=== PATIENT | female | born 1950 | race Caucasian/White ===

== ENCOUNTER → 2018-03-11 | Outpatient (CLI) | payer MEDICARE, OTHER ==
[2018-03-11 13:55] LABS: Hematocrit 33.3 % (33.0-51.0); Hemoglobin 9.9 g/dL (11.5-16.0); Mean Corpuscular HGB 22.9 pg (26.0-34.0); Mean Corpuscular HGB Conc 29.7 g/dL (31.5-36.5); Mean Corpuscular Volume 77 fL (80-100); Mean Platelet Volume 10.4 fL (9.1-12.4); Platelet Count 439 K/mm3 (150-400); RDW Coefficient Variation 22.5 % (11.7-14.2); RDW Standard Deviation 61.1 fL (35.1-46.3); Red Blood Cell Count 4.33 M/mm3 (3.80-5.20); White Blood Cell Count 8.12 K/mm3 (4.00-11.30)
== END ==
LOC: LAB 13:31 → LAB SHORT 13:31
PROVIDERS: Family Medicine
DX: R19.5 Other fecal abnormalities (principal)
CPT/HCPCS: 85027

== ENCOUNTER 2018-03-26 15:05 | Emergency (ER) | payer MEDICARE, OTHER ==
[~2018-03-26] VITALS: Ht 182.9 cm; Wt 89.4 kg
[2018-03-26 15:31] LABS: BASOPHILS ABSOLUTE AUTO 0.06 K/mm3 (0.00-0.23); BASOPHILS PERCENT AUTO 1 % (0-2); EOSINOPHILS ABSOLUTE AUTO 0.28 K/mm3 (0.00-0.68); EOSINOPHILS PERCENT AUTO 4 % (0-6); Hematocrit 36.7 % (33.0-51.0); IMMATURE GRAN ABSOLUTE AUTO 0.02 K/mm3 (0.00-0.10); IMMATURE GRAN PERCENT AUTO 0 % (0-1); LYMPHOCYTES ABSOLUTE AUTO 1.78 K/mm3 (0.84-5.20); LYMPHOCYTES PERCENT AUTO 25 % (21-46); MONOCYTES ABSOLUTE AUTO 0.71 K/mm3 (0.16-1.47); MONOCYTES PERCENT AUTO 10 % (4-13); Mean Corpuscular HGB 23.5 pg (26.0-34.0); Mean Corpuscular Volume 78 fL (80-100); Mean Platelet Volume 9.8 fL (9.1-12.4); NEUTROPHILS ABSOLUTE AUTO 4.19 K/mm3 (1.96-9.15); NEUTROPHILS PERCENT AUTO 59 % (41-73); Platelet Count 318 K/mm3 (150-400); RDW Coefficient Variation 21.2 % (11.7-14.2); RDW Standard Deviation 58.4 fL (35.1-46.3); Red Blood Cell Count 4.68 M/mm3 (3.80-5.20); White Blood Cell Count 7.04 K/mm3 (4.00-11.30)
[2018-03-26 15:55] LABS: Alanine Aminotransfer (ALT/SGP 16 U/L (12-78); Albumin, Blood 3.5 g/dL (3.4-5.0); Albumin/Globulin Ratio 0.8 (0.8-1.8); Alk Phos 114 U/L (50-136); Anion Gap 7 mmol/L (6-16); Aspartate Aminotrans (AST/SGOT 11 U/L (12-37); Bilirubin, Total 0.2 mg/dL (0.1-1.0); Blood Urea Nitrogen 11 mg/dL (8-24); Bun/Creatinine Ratio 13.9 (12.0-20.0); CO2, Blood 28 mmol/L (21-32); Calcium, Blood 8.3 mg/dL (8.5-10.1); Chloride, Blood 99 mmol/L (98-108); Creatinine, Blood 0.79 mg/dL (0.40-1.00); Globulin, Blood 4.5 g/dL (2.2-4.0); Glomerular Filtration Rate >60 (60-); Glucose, Blood 100 mg/dL (70-99); Potassium, Blood 3.4 mmol/L (3.5-5.5); Sodium, Blood 134 mmol/L (136-145)
[2018-03-26] MEDS ORDERED: TRAZ100 PO (17:41)
[2018-03-26] MEDS ORDERED: GABA600 PO (17:41)
[2018-03-26] MEDS ORDERED: TELM20 PO ×2 (17:41→17:48)
[2018-03-26] MEDS ORDERED: LEVSOD125 PO (17:42)
[2018-03-26] MEDS ORDERED: PRAMIPEXOLE0.125 MG PO (17:42)
[2018-03-26] MEDS ORDERED: DULO30 PO (17:42)
[2018-03-26] MEDS ORDERED: BACL20 PO (17:42)
[2018-03-26] MEDS ORDERED: BUPR150ER PO (17:43)
[2018-03-26] MEDS ORDERED: CEPH500 PO (17:44)
[2018-03-26] MEDS ORDERED: PANT40 PO (17:45)
[2018-03-26] MEDS ORDERED: Vesicare10 MG PO (17:45)
[2018-03-26] MEDS ORDERED: ASCO500 PO (17:46)
[2018-03-26] MEDS ORDERED: CALCA400CH PO (17:47)
== END 2018-03-26 18:10 | disposition home or self-care (01) ==
LOC: ER 15:05
PROVIDERS: Physician Assistant
DX: L03.116 Cellulitis of left lower limb (principal); M86.672 Other chronic osteomyelitis, left ankle and foot; I10 Essential (primary) hypertension; E78.5 Hyperlipidemia, unspecified; Z79.899 Other long term (current) drug therapy
CPT/HCPCS: 36415; 73610; 80053; 85025; 86141; 99283-25

== ENCOUNTER 2018-04-02 00:14 | Day surgery (SDC) | payer MEDICARE, OTHER ==
[~2018-04-02 00:14] MED LIST: ASCO500 PO; BACL20 PO; BUPR150ER PO; CALCA400CH PO; CEPH500 PO; DULO30 PO; GABA600 PO; LEVSOD125 PO; PANT40 PO; PRAMIPEXOLE0.125 MG PO; TELM20 PO; TRAZ100 PO; Vesicare10 MG PO
== END 2018-04-02 22:51 | disposition home or self-care (01) ==
LOC: WOUND 00:14
DX: L97.322 Non-pressure chronic ulcer of left ankle with fat layer exposed (principal); Z94.5 Skin transplant status; D64.9 Anemia, unspecified; M21.171 Varus deformity, not elsewhere classified, right ankle; G35 Multiple sclerosis; R79.9 Abnormal finding of blood chemistry, unspecified
CPT/HCPCS: G0463

== ENCOUNTER → 2018-04-12 | Outpatient (CLI) | payer MEDICARE, OTHER ==
[2018-04-12 18:45] LABS: Source, Urine Clean Catch
[2018-04-12 18:49] LABS: Bilirubin, Urine Neg (Neg); Blood, Urine 3+ (Neg); Glucose Qualitative, Urine Neg (Neg); Ketones, Urine Neg (Neg); Leukocyte Esterase, Urine 3+ (Neg); Nitrite, Urine Pos (Neg); Protein, Urine 1+ (Neg); Urobilinogen, Urine NORM (Normal)
[2018-04-12 18:53] LABS: Appearance, Urine Clear (Clear); Color, Urine Yellow (P-Yellow)
[2018-04-12 18:54] LABS: Bacteria Many /hpf; Red Blood Cells, Urine 0-2 /hpf (0-2); Squamous Epithelial Cells Few /hpf (Few); White Blood Cells, Urine 25-50 /hpf (0-5)
== END ==
LOC: LAB SHORT 16:10 → LAB 16:10
PROVIDERS: Family Medicine
DX: N39.0 Urinary tract infection, site not specified (principal)
CPT/HCPCS: 81001; 87077; 87086; 87186

== ENCOUNTER → 2018-04-27 | Outpatient (CLI) | payer MEDICARE, OTHER ==
[2018-04-27 17:03] LABS: Bilirubin, Urine Neg (Neg); Blood, Urine 4+ (Neg); Glucose Qualitative, Urine Neg (Neg); Ketones, Urine Neg (Neg); Leukocyte Esterase, Urine 3+ (Neg); Nitrite, Urine Pos (Neg); Protein, Urine Neg (Neg); Urobilinogen, Urine NORM (Normal)
[2018-04-27 17:28] LABS: Appearance, Urine Clear (Clear); Color, Urine Yellow (P-Yellow)
[2018-04-27 17:30] LABS: Bacteria Many /hpf; Squamous Epithelial Cells Few /hpf (Few)
== END ==
LOC: LAB SHORT 16:46 → LAB 16:46
PROVIDERS: Family Medicine
DX: R39.15 Urgency of urination (principal)
CPT/HCPCS: 81001; 87077; 87086; 87186

== ENCOUNTER 2018-05-05 15:15 | Day surgery (SDC) | payer MEDICARE, OTHER | END 2018-05-05 22:42 | disposition home or self-care (01) | LOC: WOUND 15:15 | DX: L97.322 Non-pressure chronic ulcer of left ankle with fat layer exposed (principal); Z94.5 Skin transplant status; D64.9 Anemia, unspecified; M21.171 Varus deformity, not elsewhere classified, right ankle; G35 Multiple sclerosis; R79.9 Abnormal finding of blood chemistry, unspecified | CPT/HCPCS: 87070; 87077; 87186; 87205 ==

== ENCOUNTER → 2018-05-28 | Outpatient (CLI) | payer MEDICARE, OTHER ==
[2018-05-28 14:06] LABS: Source, Urine Voided
[2018-05-28 14:17] LABS: Bilirubin, Urine Neg (Neg); Blood, Urine Neg (Neg); Glucose Qualitative, Urine Neg (Neg); Ketones, Urine Neg (Neg); Leukocyte Esterase, Urine 3+ (Neg); Nitrite, Urine Pos (Neg); Protein, Urine Neg (Neg); Urobilinogen, Urine NORM (Normal)
[2018-05-28 14:40] LABS: Appearance, Urine Hazy (Clear); Color, Urine Yellow (P-Yellow)
[2018-05-28 14:44] LABS: Bacteria Mod /hpf; Mucus Light (0-Heavy); Red Blood Cells, Urine 0-2 /hpf (0-2); Squamous Epithelial Cells Few /hpf (Few); Transitional Epithelial Cells Few /hpf (0-Rare)
== END | disposition home or self-care (01) ==
LOC: LAB SHORT 14:03 → LAB 14:03
PROVIDERS: Physician Assistant
DX: R30.0 Dysuria (principal)
CPT/HCPCS: 81001; 87077; 87086; 87186

== ENCOUNTER 2018-06-08 06:47 | Day surgery (SDC) | payer MEDICARE, OTHER ==
[~2018-06-08] VITALS: Ht 182.9 cm; Wt 87.7 kg
--- NOTE | 2018-06-08 12:08 | NUR ---
PT DC'D BY THIS RN WITH SON GIVING PT RIDE HOME
== END 2018-06-08 12:00 | disposition home or self-care (01) ==
LOC: MHTC 06:47
DX: I73.9 Peripheral vascular disease, unspecified (principal); G35 Multiple sclerosis; I10 Essential (primary) hypertension; K21.9 Gastro-esophageal reflux disease without esophagitis; M41.9 Scoliosis, unspecified; F32.9 Major depressive disorder, single episode, unspecified; Z87.891 Personal history of nicotine dependence; Z88.1 Allergy status to other antibiotic agents
CPT/HCPCS: 99152; 99153; C1760; C1769; C1887; C1894; J1644; J2250; J3010; J7030; Q9967

== ENCOUNTER → 2018-06-11 | Outpatient (CLI) | payer MEDICARE, OTHER ==
[~2018-06-11] MED LIST changes: +Acidophilus La100 GM PO; +D-MANNOSE PO; +HIPREX1 GM PO; +Hair, Skin & N1 EACH PO; +KEFLEX250 MG PO; +MAXIDE PO; +META800 PO; +PLENDIL PO; +Zanaflex4 M1 PO
[2018-06-11 14:17] LABS: Bilirubin, Urine Neg (Neg); Blood, Urine Neg (Neg); Glucose Qualitative, Urine Neg (Neg); Ketones, Urine Neg (Neg); Leukocyte Esterase, Urine 3+ (Neg); Nitrite, Urine Pos (Neg); Protein, Urine Neg (Neg); Urobilinogen, Urine NORM (Normal)
[2018-06-11 14:29] LABS: Appearance, Urine Hazy (Clear); Color, Urine Yellow (P-Yellow)
[2018-06-11 14:30] LABS: Squamous Epithelial Cells Few /hpf (Few)
[2018-06-11 14:31] LABS: Bacteria Mod /hpf; Red Blood Cells, Urine Not Seen /hpf (0-2); White Blood Cells, Urine 25-50 /hpf (0-5)
== END | disposition home or self-care (01) ==
LOC: LAB 14:08 → LAB SHORT 14:08
PROVIDERS: Family Medicine
DX: N39.0 Urinary tract infection, site not specified (principal)
CPT/HCPCS: 81001; 87077; 87086; 87186

== ENCOUNTER 2018-06-16 00:09 | Day surgery (SDC) | payer MEDICARE, OTHER ==
[~2018-06-16 00:09] MED LIST changes: -Acidophilus La100 GM PO; -D-MANNOSE PO; -HIPREX1 GM PO; -Hair, Skin & N1 EACH PO; -KEFLEX250 MG PO; -MAXIDE PO; -META800 PO; -PLENDIL PO; -Zanaflex4 M1 PO
[2018-06-17] MEDS ORDERED: Hair, Skin & N1 EACH PO (09:16)
[2018-06-17] MEDS ORDERED: META800 PO (09:18)
[2018-06-17] MEDS ORDERED: HIPREX1 GM PO (09:19)
[2018-06-17] MEDS ORDERED: MAXIDE PO (09:19)
[2018-06-17] MEDS ORDERED: D-MANNOSE PO (09:20)
[2018-06-17] MEDS ORDERED: Acidophilus La100 GM PO (09:20)
[2018-06-17] MEDS ORDERED: KEFLEX250 MG PO (09:21)
[2018-06-17] MEDS ORDERED: Zanaflex4 M1 PO (09:21)
[2018-06-17] MEDS ORDERED: BUPR150ER PO (09:22)
[2018-06-17] MEDS ORDERED: PLENDIL PO (09:23)
== END 2018-06-16 22:38 | disposition home or self-care (01) ==
LOC: WOUND 00:09
DX: L97.322 Non-pressure chronic ulcer of left ankle with fat layer exposed (principal); I10 Essential (primary) hypertension; J45.909 Unspecified asthma, uncomplicated; M21.171 Varus deformity, not elsewhere classified, right ankle; G35 Multiple sclerosis; R79.9 Abnormal finding of blood chemistry, unspecified; D64.9 Anemia, unspecified; M19.90 Unspecified osteoarthritis, unspecified site; Z94.5 Skin transplant status; Z79.899 Other long term (current) drug therapy
CPT/HCPCS: G0463

== ENCOUNTER 2018-06-23 06:06 | Inpatient (IN) | payer MEDICARE, OTHER ==
[~2018-06-23] VITALS: Ht 182.9 cm; Wt 85.7 kg
[~2018-06-23 06:06] MED LIST changes: +Acidophilus La100 GM PO; +D-MANNOSE PO; +HIPREX1 GM PO; +Hair, Skin & N1 EACH PO; +KEFLEX250 MG PO; +MAXIDE PO; +META800 PO; +PLENDIL PO; +Zanaflex4 M1 PO
--- NOTE | 2018-06-23 19:37 | NUR ---
PT HAVING INCREASED PAIN, DR LENNON NOTIFIED IN BOND WRITER FOR DR TAYLOR. DISCUSSED PT'S PAIN AND PAIN MEDICATIONS AT THIS TIME. DISCUSSED PT HAVING HOME MEDICATIONS THAT WERE NOT ORDERED AT THIS TIME. CLARIFIED NO ANTIBIOTICS ORDERED. DR CONNORS TO ORDER HOME MEDICATIONS PER THERE REGIMEN, DISCUSSED HOME MEDS IN LENGTH. DR LENNON ALSO GAVE NEW ORDERS FOR PAIN. SEE ORDERS.
--- NOTE | 2018-06-23 19:45 | NUR ---
SHIFT SUMMARY PT HAD PROCEDURE TODAY. PT A/O. PT RECENTLY HAD INCREASED PAIN. DR LENNON WAS NOTIFIED WAS SEARCH ENGINE MARKETING SPECIALIST FOR DR TAYLOR. DR LENNON GAVE NEW ORDERS FOR PAIN MED AND REPORTED TO START HOME MEDS. SEE OTHER NOTE AND ORDERS. PT BEEN PLEASANT AND COOP, MOVING IN BED. REFUSED TO HAVE HEEL PROTECTOR DRESSING TO R HEEL (WAS IN PLACE EARLIER BUT PT DID NOT LIKE SO IT WAS REMOVED AFTER DISCUSSING RISK OF B/D) PT HEEL ELEVATED WITH PILLOW. PT EATING AND DRINKING WELL. MINIMAL OUT OF HEMOVAC.
[2018-06-24 06:09] LABS: BASOPHILS ABSOLUTE AUTO 0.04 K/mm3 (0.00-0.23); BASOPHILS PERCENT AUTO 0 % (0-2); EOSINOPHILS ABSOLUTE AUTO 0.19 K/mm3 (0.00-0.68); EOSINOPHILS PERCENT AUTO 2 % (0-6); Hematocrit 26.7 % (33.0-51.0); Hemoglobin 8.2 g/dL (11.5-16.0); IMMATURE GRAN ABSOLUTE AUTO 0.04 K/mm3 (0.00-0.10); IMMATURE GRAN PERCENT AUTO 0 % (0-1); LYMPHOCYTES ABSOLUTE AUTO 1.69 K/mm3 (0.84-5.20); LYMPHOCYTES PERCENT AUTO 17 % (21-46); MONOCYTES ABSOLUTE AUTO 1.22 K/mm3 (0.16-1.47); MONOCYTES PERCENT AUTO 12 % (4-13); Mean Corpuscular HGB 23.4 pg (26.0-34.0); Mean Corpuscular HGB Conc 30.7 g/dL (31.5-36.5); Mean Corpuscular Volume 76 fL (80-100); Mean Platelet Volume 9.8 fL (9.1-12.4); NEUTROPHILS PERCENT AUTO 68 % (41-73); Platelet Count 339 K/mm3 (150-400); RDW Coefficient Variation 14.8 % (11.7-14.2); RDW Standard Deviation 40.8 fL (35.1-46.3); Red Blood Cell Count 3.51 M/mm3 (3.80-5.20); White Blood Cell Count 9.98 K/mm3 (4.00-11.30)
--- NOTE | 2018-06-24 06:38 | NUR ---
SUMMARY: PT IS POD1 FOR L BKA. NO ACUTE CHANGE TONIGHT. VSS,A/O. PT REPORTS PAIN IS WELL MANAGED RATING PAIN 2/10 OR 3/10, BUT APPEARS AND REPORTED UNABLE TO GET COMFORTABLE IN BED AND THAT PAIN WOULD WAKE HER UP. LLE POSITIONED FOR COMFORT. STUMP SITE/SOCK WNL, HEMOVAC DID NOT NEED TO BE DRAINED. PT MOVES WELL IN BED. WILL CTM AND REPORT TO DAY RN.
--- NOTE | 2018-06-24 09:50 | NUR ---
DR CONNORS WILL CANCEL STRESS TEST. REPORTS
--- NOTE | 2018-06-24 10:29 | NUR ---
JOSE ENRIQUE IN TALKING WITH PT, REPORTS PT WOULD LIKE PAIN MED BEFORE WORKING WITH THERAPY. WILL MED FOR PAIN.
--- NOTE | 2018-06-24 12:02 | NUR ---
DR TAYLOR HERE RECENTLY AND DC'D HEMOVAC. REPORTED MAY GIVE EXTRA PAIN MEDICATION PER PT REQ.
--- NOTE | 2018-06-24 12:30 | NUR ---
06/24/18 1230 Melisa Mata VERIFICATIONS: EDIT CHART.
--- NOTE | 2018-06-24 15:18 | NUR ---
CASE MANAGEMENT IN RECENTLY AND TALKED WITH PT.
--- NOTE | 2018-06-24 16:31 | NUR ---
SHIFT SUMMARY PT EATING AND DRINKING. PT BEEN ASSISTED WITH ADL'S PRN. DR BEEN TO SEE PT AND DC'D HEMOVAC EARLIER TODAY. DR ROCK FOR DENTAL SCHEDULER TO START PROCESS FOR PT TO GO TO SNF, DISCUSSED WITH CASE MANAGEMENT WHO SPOKE WITH PT. PT BEEN UP TO CHAIR WITH THERAPY EARLIER TODAY THEN BACK TO BED. PT BEEN RESTING QUIETLY OFF AND ON, TAKING NAPS. PT BEEN REPOSITIONED MULT TIMES IN BED, R HEEL FLOATED. PAS TO R CALF IN PLACE. PT USING CALL LIGHT APPR. FAMILY IN THIS EVENING TO SEE PT. SMALL AMT OF DRAINAGE ON STUMP SOCK AFTER HAVING HEMOVAC DC'D, APPEARS WNL.
[2018-06-25 05:05] LABS: BASOPHILS ABSOLUTE AUTO 0.06 K/mm3 (0.00-0.23); BASOPHILS PERCENT AUTO 1 % (0-2); EOSINOPHILS ABSOLUTE AUTO 0.32 K/mm3 (0.00-0.68); EOSINOPHILS PERCENT AUTO 3 % (0-6); Hematocrit 27.2 % (33.0-51.0); Hemoglobin 8.3 g/dL (11.5-16.0); IMMATURE GRAN ABSOLUTE AUTO 0.05 K/mm3 (0.00-0.10); IMMATURE GRAN PERCENT AUTO 1 % (0-1); LYMPHOCYTES ABSOLUTE AUTO 1.64 K/mm3 (0.84-5.20); LYMPHOCYTES PERCENT AUTO 16 % (21-46); MONOCYTES ABSOLUTE AUTO 1.25 K/mm3 (0.16-1.47); MONOCYTES PERCENT AUTO 12 % (4-13); Mean Corpuscular HGB Conc 30.5 g/dL (31.5-36.5); Mean Corpuscular Volume 75 fL (80-100); Mean Platelet Volume 9.9 fL (9.1-12.4); NEUTROPHILS ABSOLUTE AUTO 7.22 K/mm3 (1.96-9.15); NEUTROPHILS PERCENT AUTO 68 % (41-73); Platelet Count 360 K/mm3 (150-400); RDW Coefficient Variation 14.7 % (11.7-14.2); RDW Standard Deviation 40.3 fL (35.1-46.3); Red Blood Cell Count 3.61 M/mm3 (3.80-5.20); White Blood Cell Count 10.54 K/mm3 (4.00-11.30)
--- NOTE | 2018-06-25 06:37 | NUR ---
LYING IN SEMI FOWLERS WITH EYES CLOSED. MEDICATED X2 FOR PAIN. REPOSITIONED FOR COMFORT PRN. DENIES FURTHER NEEDS AT THIS TIME. SAFETY MEASURES IN PLACE. WILL GIVE HAND OFF TO ONCOMING SHIFT USING SBAR,
--- NOTE | 2018-06-25 17:56 | NUR ---
SHIFT SUMMARY NO ACUTE CHANGES THIS SHIFT. VSS. PT RECEIVING 2 NORCO FOR PAIN. STUMP SOCK TO L BKA IS DRY AND INTACT AND ELEVATED ON PILLOWS. PT HAS SOME BED MOBILITY, BUT OTHERWISE IS A 1-2 PERSON MAX ASSIST WHEN TRANSFERING FROM BED TO CHAIR. OSBALDO REG DIET. IV SL. USES CALL LIGHT APPROPRIATELY. PLAN IS FOR DC TO SNF POSSIBLY TOMORROW.
--- NOTE | 2018-06-26 07:53 | NUR ---
SUMMARY PT MUNIZ DCD BY DAY RN. PT HAD BLADDER SCAN GREATER THAN 800 ML AND REFUSED ATTEMPT TO VOID. HOWEVER,SHORTLY AFTER, PT CALLED AND HAD SATURATED ATTENDS AND YO HEAVILY SO NO CATH NEEDED TONIGHT. NO OTHER ACUTE CHANGES. PT REPOSTIONS WITH ASSIST.
--- NOTE | 2018-06-26 13:55 | NUR ---
DC'D PT TRANSFERRED TO OWN WC W/MODERATE ASSISTANCE. LEFT UNIT W/POSSESSIONS. REPORT CALLED TO DIONICIO.
== END 2018-06-26 13:35 | DRG 581 ==
LOC: ORSCMMR 06:06 → ORD 07:30 → ORSCMMR 07:30 → SURS 11:02
PROVIDERS: ADMIT Surgery
PROC: 0Y6J0Z1 Detachment at Left Lower Leg, High, Open Approach (ICD-10-PCS; principal; 2018-06-23 07:30)
DX: L97.824 Non-pressure chronic ulcer of other part of left lower leg with necrosis of bone (principal); N31.9 Neuromuscular dysfunction of bladder, unspecified; G35 Multiple sclerosis; I10 Essential (primary) hypertension; E03.9 Hypothyroidism, unspecified; K21.9 Gastro-esophageal reflux disease without esophagitis; Z87.891 Personal history of nicotine dependence
CPT/HCPCS: 36415; 85025; 88307; 97162; 97166; 97530; 97535; A9270-GY; J0690; J1100; J1650; J1885; J2250; J2370; J2405; J2704; J3010; J7120

== ENCOUNTER → 2018-07-05 | Outpatient (CLI) | payer MEDICARE, OTHER | END | disposition home or self-care (01) | LOC: LAB 16:53 → LAB SHORT 16:53 | DX: Z09 Encounter for follow-up examination after completed treatment for conditions other than malignant neoplasm (principal); Z86.14 Personal history of Methicillin resistant Staphylococcus aureus infection ==

== ENCOUNTER 2018-08-13 01:22 | Day surgery (SDC) | payer MEDICARE, OTHER | END 2018-08-13 22:42 | disposition home or self-care (01) | LOC: WOUND 01:22 | DX: T87.89 Other complications of amputation stump (principal); L97.822 Non-pressure chronic ulcer of other part of left lower leg with fat layer exposed; I10 Essential (primary) hypertension; I73.9 Peripheral vascular disease, unspecified; E03.9 Hypothyroidism, unspecified; F32.9 Major depressive disorder, single episode, unspecified; D50.9 Iron deficiency anemia, unspecified; Z89.512 Acquired absence of left leg below knee ==

== ENCOUNTER 2018-08-24 00:18 | Day surgery (SDC) | payer MEDICARE, OTHER | END 2018-08-24 22:54 | disposition home or self-care (01) | LOC: WOUND 00:18 | DX: T87.89 Other complications of amputation stump (principal); I10 Essential (primary) hypertension; I73.9 Peripheral vascular disease, unspecified; D64.9 Anemia, unspecified; Z89.512 Acquired absence of left leg below knee ==

== ENCOUNTER 2018-09-03 14:45 | Day surgery (SDC) | payer MEDICARE, OTHER | END 2018-09-03 22:59 | disposition home or self-care (01) | LOC: WOUND 14:45 | DX: T87.89 Other complications of amputation stump (principal); I73.9 Peripheral vascular disease, unspecified; I10 Essential (primary) hypertension; E03.9 Hypothyroidism, unspecified; F32.9 Major depressive disorder, single episode, unspecified; D64.9 Anemia, unspecified; Z89.512 Acquired absence of left leg below knee ==

== ENCOUNTER 2018-09-10 14:45 | Day surgery (SDC) | payer MEDICARE, OTHER | END 2018-09-10 22:38 | disposition home or self-care (01) | LOC: WOUND 14:45 | DX: T87.89 Other complications of amputation stump (principal); L97.822 Non-pressure chronic ulcer of other part of left lower leg with fat layer exposed; I10 Essential (primary) hypertension; I73.9 Peripheral vascular disease, unspecified; Z89.512 Acquired absence of left leg below knee ==

== ENCOUNTER 2018-09-15 19:56 | Emergency (ER) | payer MEDICARE, OTHER ==
[~2018-09-15] VITALS: Ht 182.9 cm; Wt 81.7 kg
[2018-09-15 20:23] LABS: BASOPHILS ABSOLUTE AUTO 0.06 K/mm3 (0.00-0.23); BASOPHILS PERCENT AUTO 1 % (0-2); EOSINOPHILS PERCENT AUTO 4 % (0-6); Hematocrit 41.4 % (33.0-51.0); Hemoglobin 13.2 g/dL (11.5-16.0); IMMATURE GRAN ABSOLUTE AUTO 0.04 K/mm3 (0.00-0.10); IMMATURE GRAN PERCENT AUTO 0 % (0-1); LYMPHOCYTES ABSOLUTE AUTO 3.83 K/mm3 (0.84-5.20); LYMPHOCYTES PERCENT AUTO 38 % (21-46); MONOCYTES PERCENT AUTO 9 % (4-13); Mean Corpuscular HGB 25.8 pg (26.0-34.0); Mean Corpuscular HGB Conc 31.9 g/dL (31.5-36.5); Mean Corpuscular Volume 81 fL (80-100); Mean Platelet Volume 9.9 fL (9.1-12.4); NEUTROPHILS ABSOLUTE AUTO 4.93 K/mm3 (1.96-9.15); NEUTROPHILS PERCENT AUTO 49 % (41-73); Platelet Count 359 K/mm3 (150-400); RDW Coefficient Variation 16.8 % (11.7-14.2); RDW Standard Deviation 50.2 fL (35.1-46.3); Red Blood Cell Count 5.12 M/mm3 (3.80-5.20); White Blood Cell Count 10.16 K/mm3 (4.00-11.30)
[2018-09-15 20:40] LABS: Anion Gap 8 mmol/L (6-16); Blood Urea Nitrogen 16 mg/dL (8-24); CO2, Blood 27 mmol/L (21-32); Calcium, Blood 8.8 mg/dL (8.5-10.1); Chloride, Blood 100 mmol/L (98-108); Glomerular Filtration Rate >60 (60-); Glucose, Blood 116 mg/dL (70-99); Sodium, Blood 135 mmol/L (136-145)
[2018-09-15] MEDS ORDERED: MOTION RELIEF25 MG PO (20:55)
[2018-09-15] MEDS ORDERED: ONDA4ODT MM (20:55)
[2018-09-15] MEDS ORDERED: LORA2 PO (20:55)
== END 2018-09-15 22:23 | disposition home or self-care (01) ==
LOC: ER 19:56
PROVIDERS: Emergency Medicine
DX: R42 Dizziness and giddiness (principal); R11.2 Nausea with vomiting, unspecified; I10 Essential (primary) hypertension; E03.9 Hypothyroidism, unspecified; Z79.899 Other long term (current) drug therapy
CPT/HCPCS: 36415; 80048; 85025; 96361; 96374; 96375; 99284-25; A9270-GY; J2060; J2405; J7030

== ENCOUNTER 2018-09-22 15:26 | Day surgery (SDC) | payer MEDICARE, OTHER ==
[~2018-09-22 15:26] MED LIST changes: +LORA2 PO; +MOTION RELIEF25 MG PO; +ONDA4ODT MM
== END 2018-09-22 23:32 | disposition home or self-care (01) ==
LOC: WOUND 15:26
PROC: 0HDLXZZ Extraction of Left Lower Leg Skin, External Approach (ICD-10-PCS; principal; 2018-09-22)
DX: T87.89 Other complications of amputation stump (principal); L97.822 Non-pressure chronic ulcer of other part of left lower leg with fat layer exposed; R21 Rash and other nonspecific skin eruption; I73.9 Peripheral vascular disease, unspecified; G35 Multiple sclerosis

== ENCOUNTER 2018-10-08 02:49 | Day surgery (SDC) | payer MEDICARE, OTHER | END 2018-10-08 23:26 | disposition home or self-care (01) | LOC: WOUND 02:49 | DX: T87.89 Other complications of amputation stump (principal); I73.9 Peripheral vascular disease, unspecified; R21 Rash and other nonspecific skin eruption; G35 Multiple sclerosis; G25.81 Restless legs syndrome; E03.9 Hypothyroidism, unspecified; F32.9 Major depressive disorder, single episode, unspecified; I10 Essential (primary) hypertension; Z89.512 Acquired absence of left leg below knee | CPT/HCPCS: G0463 ==

== ENCOUNTER 2018-10-14 15:33 | Observation (INO) | payer MEDICARE, OTHER ==
[~2018-10-14] VITALS: Ht 182.9 cm; Wt 190.0 kg
[2018-10-14] MEDS ORDERED: DULO30 PO (16:06)
[2018-10-14] MEDS ORDERED: TRAZ100 PO (16:07)
[2018-10-14] MEDS ORDERED: Motion Sickness25 M5 PO (16:07)
[2018-10-14] MEDS ORDERED: TELM20 PO (16:08)
[2018-10-14] MEDS ORDERED: IRON18 MG PO (16:09)
--- NOTE | 2018-10-14 18:11 | NUR ---
ALERT. ORIENTED. LT BKA. HERE FOR UPPER AND LOWER SCOPE TOMORROW. CLEAR LIQUIDS WITHOUT ANYTHING RED FOR DINNER. GOLYTELY STARTED. USES BEDPAN. ABLE TO MAKE NEEDS KNOWN. ELECTRIC SCREW DRIVER OPERATOR TO START IV. WCTM.
[2018-10-15 05:35] LABS: BASOPHILS ABSOLUTE AUTO 0.06 K/mm3 (0.00-0.23); BASOPHILS PERCENT AUTO 1 % (0-2); EOSINOPHILS ABSOLUTE AUTO 0.37 K/mm3 (0.00-0.68); EOSINOPHILS PERCENT AUTO 4 % (0-6); Hematocrit 40.2 % (33.0-51.0); Hemoglobin 12.7 g/dL (11.5-16.0); IMMATURE GRAN ABSOLUTE AUTO 0.03 K/mm3 (0.00-0.10); IMMATURE GRAN PERCENT AUTO 0 % (0-1); LYMPHOCYTES ABSOLUTE AUTO 1.86 K/mm3 (0.84-5.20); LYMPHOCYTES PERCENT AUTO 21 % (21-46); MONOCYTES ABSOLUTE AUTO 0.98 K/mm3 (0.16-1.47); MONOCYTES PERCENT AUTO 11 % (4-13); Mean Corpuscular HGB 26.4 pg (26.0-34.0); Mean Corpuscular HGB Conc 31.6 g/dL (31.5-36.5); Mean Corpuscular Volume 84 fL (80-100); Mean Platelet Volume 10.5 fL (9.1-12.4); NEUTROPHILS ABSOLUTE AUTO 5.39 K/mm3 (1.96-9.15); NEUTROPHILS PERCENT AUTO 62 % (41-73); Platelet Count 275 K/mm3 (150-400); RDW Coefficient Variation 15.4 % (11.7-14.2); RDW Standard Deviation 47.4 fL (35.1-46.3); Red Blood Cell Count 4.81 M/mm3 (3.80-5.20); White Blood Cell Count 8.69 K/mm3 (4.00-11.30)
[2018-10-15 05:56] LABS: International Normalized Ratio 0.96; Prothrombin Time Results 10.2 Sec (9.7-11.5)
[2018-10-15 06:09] LABS: Alanine Aminotransfer (ALT/SGP 21 U/L (12-78); Albumin, Blood 3.3 g/dL (3.4-5.0); Albumin/Globulin Ratio 0.9 (0.8-1.8); Alk Phos 87 U/L (50-136); Anion Gap 6 mmol/L (6-16); Aspartate Aminotrans (AST/SGOT 11 U/L (12-37); Bilirubin, Total 0.4 mg/dL (0.1-1.0); Blood Urea Nitrogen 14 mg/dL (8-24); Bun/Creatinine Ratio 19.4 (12.0-20.0); CO2, Blood 29 mmol/L (21-32); Calcium, Blood 8.6 mg/dL (8.5-10.1); Chloride, Blood 105 mmol/L (98-108); Creatinine, Blood 0.72 mg/dL (0.40-1.00); Globulin, Blood 3.8 g/dL (2.2-4.0); Glomerular Filtration Rate >60 (60-); Glucose, Blood 94 mg/dL (70-99); Potassium, Blood 4.1 mmol/L (3.5-5.5); Sodium, Blood 140 mmol/L (136-145); Total Protein, Blood 7.1 g/dL (6.4-8.2)
--- NOTE | 2018-10-15 07:20 | NUR ---
SHIFT SUMMARY PATIENT DRANK A TOTAL OF 4,000 ML OF GOLYTELY BUT HAD ZERO BOWEL MOVEMENTS THROUGHOUT THE NIGHT. PATIENT USED BEDPAN TO URINATE EVERY HOUR THROUGH THE NIGHT BUT HAD NO SUCCESS HAVING A BM. 18G IV STARTED IN RIGHT FOREARM. PATIENT CAN TURN SELF IN BED. NO ACUTE EVENTS OR BLOODY STOOLS SEEN.
--- NOTE | 2018-10-15 12:03 | NUR ---
CALLED DR LOVETT- PT SHEDULED FOR SCOPE AT 1330. PT NOT READY FOR SCOPE, STOOL IS MOVING NOW BUT IS THICK GRAINY BROWN LIQUID. RECIEVED A NEW ORDER FOR FLEETS ENEMA PRIOR TO ALREADY ORDERED TAP WATER ENEMA.
--- NOTE | 2018-10-15 19:08 | NUR ---
SHIFT SUMMARY- PT WAS DRINKING GOLYTELY. WHEN SHE GOT TO THE END OF THE 200ML THAT WERE ORDERED SHE STATED SHE WAS FEELING SOMETHING MOVING, SHORTLY AFTER SHE STATED SHE WAS NAUSEATED, CALLED DR SANCHEZ AND REQUESTED NAUSEA MEDICATION, PRIOR TO ORDER VERIFICATION PT VOMITED 700ML OF CLEAR YELLOW EMESIS. WHEN ORDER WAS VERIFIED PT STATED SHE IS NO LONGER NAUSEATED, MED AVAILABLE THIS EVENING IF NEEDED. DR LOVETT HAS REQUESTED NIGHT RN TO CALL AT 8PM [facility] FOR AN UPDATE ON PT STOOL STATUS AND FOR FURTHER ORDERS. NUMBER TO CALL [phone]
--- NOTE | 2018-10-15 20:17 | NUR ---
DR christopher Gibson and updated on emisis and lack of effect from tap water enema. 20 mg dulcolax tabs now and tap water enema at 2200 and 0600.
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
--- NOTE | 2018-10-16 06:36 | NUR ---
BROUGHT TO [facility] FROM ROOM 342 RECIEVED VERBAL REPORT FOR MED RN. ADMISSION TO UNIT STARTED
--- NOTE | 2018-10-16 07:00 | NUR ---
ASSUMED CARE OF PT- PT NOT IN THE ROOM AT CHANGE OF SHIFT. RECIEVED REPORT FROM NIGHT RN AVSYL. PER REPORT PT BOWEL PREP WAS NOT SUCCESSFUL WE HAD HOPED BUT PT WAS TAKEN DOWN FOR UPPER AND LOWER AROUND 0630. PT WILL RETURN TO THE ROOM POST PROCEDURE AND POSSIBLY DC HOME AFTER DEPENDING ON THE RESULT.
--- NOTE | 2018-10-16 07:01 | NUR ---
10/16/18 0701 Kyaw Thomas PATIENT DETERMINED TO BE ASA APPROPRIATE FOR PROPOFOL SEDATION PRIOR TO START OF PROCEDURE BY DR. Jarek Hernández Placed3-LEAD EKG REVIEWED WITH PHYSICIAN PRIOR TO START OF PROCEDURE.Patient to ENDO 1History, Chart, Medications and Allergies reviewed before start of procedure.MONITOR INTACT WITH CONTINUOUS PULSE OXIMETRY AND INTERMITTENT BP.O2 VIA N/C INTACT THROUGHOUT SEDATION/PROCEDURE.
--- NOTE | 2018-10-16 08:10 | NUR ---
PT RETURNED FROM PROCEDURE- PT ALERT AND TALKING TO STAFF, STARTED POST OP VITALS. PER REPORT FROM THE WELDING ROD COATER PT IS TO HAVE A BARRIUM ENEMA AND THEN DC HOME AFTER THAT. SPOKE TO DR TOMAS AND HE IS AWARE OF THE PLAN.
[2018-10-16] MEDS ORDERED: Dyazide 37.5-21 EACH PO (14:26)
--- NOTE | 2018-10-16 18:40 | NUR ---
DISCHARGE NOTE- PT DISCHARGED HOME. TAKEN BY IAM SAHNI TO HER HOME. PT IV DC'D PRIOR TO DISCHARGE. PT WAS GIVEN VERBAL AND WRITTEN DISCHARGE INSTRUCTIONS AND ACKNOWLEDGED UNDERSTANDING OF THEM. MEDS WERE FAXED TO [facility] AT THE PT REQUEST. NO FURTHER QUESTIONS AT THE TIME OF DISCHARGE.
== END 2018-10-16 17:15 | disposition home or self-care (01) ==
LOC: MEDS 15:33
PROVIDERS: Internal Medicine Gastroenterology; ADMIT Family Medicine
PROC: 0W3P8ZZ Control Bleeding in Gastrointestinal Tract, Via Natural or Artificial Opening Endoscopic (ICD-10-PCS; principal; 2018-10-16 07:00)
PROC: 0DJD8ZZ Inspection of Lower Intestinal Tract, Via Natural or Artificial Opening Endoscopic (ICD-10-PCS; principal; 2018-10-16 07:00)
PROC: 0DB68ZX Excision of Stomach, Via Natural or Artificial Opening Endoscopic, Diagnostic (ICD-10-PCS; principal; 2018-10-16 07:00)
DX: K31.819 Angiodysplasia of stomach and duodenum without bleeding (principal); K22.10 Ulcer of esophagus without bleeding; K92.1 Melena; D50.9 Iron deficiency anemia, unspecified; K44.9 Diaphragmatic hernia without obstruction or gangrene; G35 Multiple sclerosis; I10 Essential (primary) hypertension; E03.9 Hypothyroidism, unspecified; F32.9 Major depressive disorder, single episode, unspecified; N39.41 Urge incontinence; Z80.0 Family history of malignant neoplasm of digestive organs; N39.0 Urinary tract infection, site not specified; Z88.1 Allergy status to other antibiotic agents; Z79.899 Other long term (current) drug therapy; Z89.512 Acquired absence of left leg below knee
CPT/HCPCS: 36415; 74270; 80053; 85025; 85610; 88305; 88342; 96360; 96361; A9270; G0378; J2704; J7030; J7120

== ENCOUNTER → 2018-10-20 | Outpatient (CLI) | payer MEDICARE, OTHER ==
[~2018-10-20] MED LIST changes: +Dyazide 37.5-21 EACH PO; +IRON18 MG PO; +Motion Sickness25 M5 PO
[2018-10-20 15:29] LABS: Source, Urine Clean Catch
[2018-10-20 15:40] LABS: Bilirubin, Urine Neg (Neg); Blood, Urine 2+ (Neg); Glucose Qualitative, Urine Neg (Neg); Ketones, Urine Neg (Neg); Leukocyte Esterase, Urine 3+ (Neg); Nitrite, Urine Pos (Neg); Protein, Urine 1+ (Neg); Urobilinogen, Urine NORM (Normal)
[2018-10-20 15:56] LABS: Appearance, Urine Cloudy (Clear); Color, Urine Yellow (P-Yellow)
[2018-10-20 15:57] LABS: Bacteria Many /hpf; Squamous Epithelial Cells Few /hpf (Few); White Blood Cells, Urine TNTC /hpf (0-5)
== END | disposition home or self-care (01) ==
LOC: LAB 15:27 → LAB SHORT 15:27
PROVIDERS: Family Medicine
DX: N39.0 Urinary tract infection, site not specified (principal)
CPT/HCPCS: 81001; 87077; 87086; 87186

== ENCOUNTER 2018-10-22 02:29 | Day surgery (SDC) | payer MEDICARE, OTHER | END 2018-10-22 23:16 | disposition home or self-care (01) | LOC: WOUND 02:29 | DX: T87.89 Other complications of amputation stump (principal); I73.9 Peripheral vascular disease, unspecified; G35 Multiple sclerosis; G25.81 Restless legs syndrome; E03.9 Hypothyroidism, unspecified; F32.9 Major depressive disorder, single episode, unspecified; I10 Essential (primary) hypertension; Z89.512 Acquired absence of left leg below knee | CPT/HCPCS: G0463 ==

== ENCOUNTER 2018-12-05 05:25 | Inpatient (IN) | payer MEDICARE, OTHER ==
[~2018-12-05] VITALS: Ht 182.9 cm; Wt 86.2 kg
[2018-12-05 07:22] LABS: BASOPHILS ABSOLUTE AUTO 0.04 K/mm3 (0.00-0.23); BASOPHILS PERCENT AUTO 0 % (0-2); EOSINOPHILS ABSOLUTE AUTO 0.27 K/mm3 (0.00-0.68); EOSINOPHILS PERCENT AUTO 2 % (0-6); Hematocrit 38.6 % (33.0-51.0); Hemoglobin 12.2 g/dL (11.5-16.0); IMMATURE GRAN ABSOLUTE AUTO 0.07 K/mm3 (0.00-0.10); IMMATURE GRAN PERCENT AUTO 1 % (0-1); LYMPHOCYTES ABSOLUTE AUTO 1.26 K/mm3 (0.84-5.20); LYMPHOCYTES PERCENT AUTO 11 % (21-46); MONOCYTES ABSOLUTE AUTO 0.82 K/mm3 (0.16-1.47); MONOCYTES PERCENT AUTO 7 % (4-13); Mean Corpuscular HGB Conc 31.6 g/dL (31.5-36.5); Mean Corpuscular Volume 89 fL (80-100); Mean Platelet Volume 9.7 fL (9.1-12.4); NEUTROPHILS ABSOLUTE AUTO 8.76 K/mm3 (1.96-9.15); NEUTROPHILS PERCENT AUTO 78 % (41-73); Platelet Count 275 K/mm3 (150-400); RDW Coefficient Variation 13.9 % (11.7-14.2); RDW Standard Deviation 45.2 fL (35.1-46.3); Red Blood Cell Count 4.36 M/mm3 (3.80-5.20); White Blood Cell Count 11.22 K/mm3 (4.00-11.30)
[2018-12-05 07:28] LABS: International Normalized Ratio 0.94
[2018-12-05 07:32] LABS: Alanine Aminotransfer (ALT/SGP 18 U/L (12-78); Albumin, Blood 3.1 g/dL (3.4-5.0); Albumin/Globulin Ratio 0.8 (0.8-1.8); Alk Phos 83 U/L (50-136); Anion Gap 6 mmol/L (6-16); Aspartate Aminotrans (AST/SGOT 13 U/L (12-37); Bilirubin, Total 0.2 mg/dL (0.1-1.0); Blood Urea Nitrogen 21 mg/dL (8-24); Bun/Creatinine Ratio 29.5 (12.0-20.0); CO2, Blood 28 mmol/L (21-32); Calcium, Blood 8.4 mg/dL (8.5-10.1); Chloride, Blood 103 mmol/L (98-108); Creatinine, Blood 0.71 mg/dL (0.40-1.00); Globulin, Blood 3.7 g/dL (2.2-4.0); Glomerular Filtration Rate >60 (60-); Glucose, Blood 96 mg/dL (70-99); Magnesium, Blood 2.1 mg/dL (1.6-2.4); Potassium, Blood 4.7 mmol/L (3.5-5.5); Sodium, Blood 137 mmol/L (136-145); Total Protein, Blood 6.8 g/dL (6.4-8.2)
[2018-12-05 08:32] LABS: Source, Urine Clean Catch
[2018-12-05 08:37] LABS: Appearance, Urine Clear (Clear); Bilirubin, Urine Neg (Neg); Blood, Urine Neg (Neg); Color, Urine Yellow (P-Yellow); Glucose Qualitative, Urine Neg (Neg); Ketones, Urine Neg (Neg); Leukocyte Esterase, Urine 2+ (Neg); Nitrite, Urine Pos (Neg); Protein, Urine Neg (Neg); Specific Gravity, Urine 1.015 (1.003-1.022); Urobilinogen, Urine NORM (Normal)
[2018-12-05 08:51] LABS: Bacteria Many /hpf; Red Blood Cells, Urine 0-2 /hpf (0-2); Squamous Epithelial Cells Rare /hpf (Few)
--- NOTE | 2018-12-05 18:22 | NUR ---
SHIFT SUMMARY PT A&OX4, VSS, L HIP FX ON LLE W/BKA, ORTHO CONSULTED: NONSURGICAL. PT USES SLIDEBOARD AT BASELINE TO TRANSFER FROM WHEELCHAIR TO CHAIR/BED/TOILET. NARES & THROAT SWABS SENT TO CLEAR MRSA CONTACT - RESULTS PENDING. ATIVAN 0.5 MG GIVEN FOR SPASMS. VOIDING WELL INCONTINENT, ATTENDS ON. OSBALDO PO, DENIES N&V. WILL REPORT TO ONCOMING NOC RN.
[2018-12-06 04:42] LABS: Anion Gap 6 mmol/L (6-16); Blood Urea Nitrogen 16 mg/dL (8-24); Bun/Creatinine Ratio 25.9 (12.0-20.0); CO2, Blood 26 mmol/L (21-32); Chloride, Blood 104 mmol/L (98-108); Creatinine, Blood 0.62 mg/dL (0.40-1.00); Glomerular Filtration Rate >60 (60-); Glucose, Blood 120 mg/dL (70-99); Potassium, Blood 4.3 mmol/L (3.5-5.5); Sodium, Blood 136 mmol/L (136-145)
--- NOTE | 2018-12-06 05:53 | NUR ---
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 AFTER PATIENT HAD HER TRAZEDONE (PT'S NORMAL HOME MEDICATION) SHE HAD VERY LITTLE INVOLUNTARY MOVEMENTS AND WAS ABLE TO REST. sHE IS INCONTINENT OF URINE, BUT KNOWS WHEN IT HAPPENS AND IS ABLE TO CALL RIGHT AWAY TO BE CLEANED. SHE IS HOPING THAT THE SURGEON TODAY WILL WANT TO DO SURGERY ON HER HIP. NO OTHER ACUTE CHANGES.
--- NOTE | 2018-12-06 09:22 | NUR ---
PT C/O 10/30 PAIN ON L HIP THIS AM, MEDICATED W/ PO DILAUDID, PT TO WORK W/ PHYS TX THS AM.
--- NOTE | 2018-12-06 10:04 | NUR ---
PT C/O 10/10 PAIN ON L AND R HIP, STATES R HIP IS MORE PAINFUL THAN THE LEFT, REPORTS HAVING SOME "SPASMS" ON L HIP, PT MEDICATED WITH ATIVAN, ICE PACK TO LEFT HIP AREA, DR. OLIVAS AND KAY AWARE.
--- NOTE | 2018-12-06 18:06 | NUR ---
SUMMARY DR. MERCHANT HERE TO SEE PT, CONT. TO C/O PAIN ON BILAT. HIPS, PLAN FOR HEMIARTHROPLASTY TOMORROW W/ DR. VILLANUEVA AND CT ON R HIP AND LUMBAR XRAY, PT UNDERSTANDS PLAN.
[2018-12-07 04:55] LABS: Hemoglobin 11.4 g/dL (11.5-16.0); Mean Corpuscular HGB 27.7 pg (26.0-34.0); Mean Corpuscular HGB Conc 32.6 g/dL (31.5-36.5); Mean Platelet Volume 9.6 fL (9.1-12.4); Platelet Count 230 K/mm3 (150-400); RDW Coefficient Variation 13.7 % (11.7-14.2); RDW Standard Deviation 42.9 fL (35.1-46.3); Red Blood Cell Count 4.12 M/mm3 (3.80-5.20); White Blood Cell Count 10.62 K/mm3 (4.00-11.30)
[2018-12-07 04:57] LABS: Mean Corpuscular Volume 85 fL (80-100)
--- NOTE | 2018-12-07 05:31 | NUR ---
SHIFT SUMMARY: PT IS ALERT AND ORIENTED. PT IS CALM AND COOPERATIVE WITH CARE. PT CALLS APPROPRIATELY. PT ON BEDREST, NOT OUT OF BED OVERNIGHT. PT HAVING R. AND L. HIP PAIN, MEDICATING PER EMAR. PT DENIES NAUSEA, VOMITING, AND SOB. PT SLEPT INTERMITTENTLY THROUGHOUT THE NIGHT. PT NPO AFTER MIDNIGHT ORDERED FOR L. HIP SURGERY. BED IN LOW POSITION, CALL LIGHT WITHIN REACH. WILL CONTINUE TO MONITOR.
--- NOTE | 2018-12-07 13:37 | NUR ---
PT INTO SDS FROM 208. MAONING AND PAINFUL. UNABLE TO PLACE PAS OR DO CHL PREP. PT REPORTS BILATERAL HI[ PAIN TO BOTH R AND L HIP EQUALLY. MD AWARE OF PAPIN ISSUES.History, Chart, Medications and Allergies reviewed before start of procedure.Patient confirms NPO status and agrees with scheduled surgery.
--- NOTE | 2018-12-07 14:39 | NUR ---
"DAY SURGERY RN | HANDOFF FROM JENNIFER RN. Assumed care. Patient in visible distress. Obtained pain medication order from Dr. Kee. Given per order. Patient denies nausea. Dr. Rick had seen when Jennifer RN was primary RN. Dr. Kee obtained consent. Gas Plant Technician saw patient. To OR."
--- NOTE | 2018-12-07 18:48 | NUR ---
SHIFT SUMMARY PT A&Ox4. CALM AND COOPERATIVE WITH CARE. PT RESTING IN BED DURING SHIFT. PT REPORTS PAIN, MEDICATED x1 WITH IV DILAUDID AND x1 WITH PO DILAUDID WITH POSITIVE RESULTS. PLACED ICE PACK TO HIP PRIOR TO LEAVING FOR SURGERY. PT TO SURGERY THIS AFTERNOON. PT BACK FROM SURGERY AT 1745, AQUACEL IN PLACE ON LEFT HIP, NO SIGNS OF BLEEDING NOTED, DRESSING C/D/I. POST OP VSS. PT RECEIVED IV ANTIBIOTICS AND TRANSEXAMIC ACID. PT DENIES NAUSEA, REPORT FROM MAINTENANCE TEAM LEADER THAT PT NAUSEA AND MEDICATED WITH ZOFRAN. PT DENIES SOB, SPO2 >90% ON RA. ENCOURAGED PT TO DEEP BREATH AND COUGH. VSS. NO OTHER ACUTE CHANGES NOTED DURING SHIFT. WILL CONTINUE TO MONITOR.
--- NOTE | 2018-12-08 05:55 | NUR ---
SHIFT SUMMARY LYING IN SEMI FOWLERS WITH EYES OPEN. ABLE TO READJUST SELF IN BED USING TRAPEZE BAR OVERHEAD. MEDICATED FOR PAIN PER EMAR. DRESSING IS C/D/I. DENEIS FURTHER NEEDS OR WANTS AT THIS TIME. WILL GIVE HAND OFF TO ONCOMING SHIFT USING SBAR.
--- NOTE | 2018-12-08 14:56 | NUR ---
1415 BLADDER SCAN PATIENT UNABLE TO VOID, BLADDER SCAN 1129 ML. PATIENT PLACED ON BEDPAN AND VOIDED 400 ML XANDER URINE. BLADDER SCAN REPEATED AND SHOWA [address] OLIVAS AND STRAIGHT CATH ORDERS OBTAINED. PATIENT CATHED FOR 950 ML OF XANDER URINE
--- NOTE | 2018-12-08 17:40 | NUR ---
summary patient moans and thrashes in bed at times- when in room and talk to patient she calms and does tell me that her current pain level post op is similar to her baseline level of pain that she was having at home. patient reports right hip and back sharp stabbing paibn was present prior to admit. patient with poor po intake- ensure given.
--- NOTE | 2018-12-09 00:20 | NUR ---
14FR MUNIZ CATH PLACED AFTER BLADDER SCAN PERFORMED AND 787ML NOTED IN BLADDER. STERILE TECHNIQUE MAINTAINTED THROUGHOUT. SAMPLE SENT TO LAB FOR UA. SAFETY MEASURES IN PLACE. WILL CONTINUE TO MONITOR.
[2018-12-09 00:37] LABS: Source, Urine Catheter
[2018-12-09 00:42] LABS: Bilirubin, Urine Neg (Neg); Blood, Urine Neg (Neg); Glucose Qualitative, Urine Neg (Neg); Ketones, Urine Neg (Neg); Leukocyte Esterase, Urine 3+ (Neg); Nitrite, Urine Neg (Neg); Protein, Urine Neg (Neg); Specific Gravity, Urine 1.015 (1.003-1.022); Urobilinogen, Urine NORM (Normal); pH, Urine 6.5 (5.0-8.0)
[2018-12-09 00:48] LABS: Appearance, Urine Hazy (Clear); Color, Urine Yellow (P-Yellow)
[2018-12-09 00:49] LABS: Bacteria Few /hpf; Red Blood Cells, Urine Not Seen /hpf (0-2); Squamous Epithelial Cells Few /hpf (Few); Transitional Epithelial Cells Few /hpf (0-Rare); White Blood Cells, Urine 25-50 /hpf (0-5)
--- NOTE | 2018-12-09 07:37 | NUR ---
SHIFT SUMMARY LYING IN SEMI FOWLERS WITH EYES OPEN. ABLE TO READJUST SELF IN BED USING TRAPEZE BAR OVERHEAD. MEDICATED FOR PAIN PER EMAR. DRESSING IS C/D/I. DENIES FURTHER NEEDS OR WANTS AT THIS TIME. WILL GIVE HAND OFF TO ONCOMING SHIFT USING SBAR.
--- NOTE | 2018-12-09 14:27 | NUR ---
DISCHARGE: PT RECENTLY DISCHARGED TO [facility] BY [facility]SPORT IN OWN W/C. BELONGINGS SENT WITH PT INCLUDING PAPERWORK, SCRIPTS, AND DRESSING SUPPLIES. REPORT GIVEN TO XANDER AT [facility]. PT HAS MUNIZ IN PLACE. PT DRESSING TO L HIP HAD A FEW TINY SPOTS OF DRAINAGE, APPEARED WNL.
--- NOTE | 2018-12-09 14:32 | NUR ---
CASE MANAGEMENT ASSISTED WITH DISCHARGE AND REPORTED TALKING TO FAMILY EARLIER TODAY.
== END 2018-12-09 14:28 | DRG 469 ==
LOC: ER 05:25 → SURS 05:26
PROVIDERS: Emergency Medicine; Internal Medicine; Orthopaedic Surgery; ADMIT Internal Medicine Endocrinology, Diabetes & Metabolism
PROC: 0SRS0JA Replacement of Left Hip Joint, Femoral Surface with Synthetic Substitute, Uncemented, Open Approach (ICD-10-PCS; principal; 2018-12-07 14:00)
DX: S72.002A Fracture of unspecified part of neck of left femur, initial encounter for closed fracture (principal); G93.41 Metabolic encephalopathy; N39.0 Urinary tract infection, site not specified; M86.60 Other chronic osteomyelitis, unspecified site; G35 Multiple sclerosis; Z89.512 Acquired absence of left leg below knee; E03.9 Hypothyroidism, unspecified; I10 Essential (primary) hypertension; K21.9 Gastro-esophageal reflux disease without esophagitis; G25.81 Restless legs syndrome; N31.9 Neuromuscular dysfunction of bladder, unspecified; B96.20 Unspecified Escherichia coli [E. coli] as the cause of diseases classified elsewhere; W05.0XXA Fall from non-moving wheelchair, initial encounter; Z79.899 Other long term (current) drug therapy
CPT/HCPCS: 36415; 51702; 70450; 71045; 72100; 72170; 72192; 73523; 73552; 80048; 80053; 81001; 82550; 83735; 85025; 85027; 85610; 87077; 87081; 87086; 87186; 88305; 88311; 96374; 97162; 97164; 97166; 97530; 99285-25; A9270; C1776; J0171; J0330; J0696; J0735; J1170; J1650; J1885; J2060; J2250; J2405; J2704; J2795; J3010; J3370; J7030; J7120; P9612

== ENCOUNTER 2019-07-24 17:49 | Inpatient (IN) | payer MEDICARE, OTHER ==
[~2019-07-24] VITALS: Ht 162.6 cm; Wt 88.7 kg
[2019-07-24 18:33] LABS: BASOPHILS ABSOLUTE AUTO 0.07 K/mm3 (0.00-0.23); BASOPHILS PERCENT AUTO 1 % (0-2); EOSINOPHILS ABSOLUTE AUTO 0.06 K/mm3 (0.00-0.68); EOSINOPHILS PERCENT AUTO 0 % (0-6); Hematocrit 51.5 % (33.0-51.0); Hemoglobin 15.7 g/dL (11.5-16.0); IMMATURE GRAN ABSOLUTE AUTO 0.05 K/mm3 (0.00-0.10); IMMATURE GRAN PERCENT AUTO 0 % (0-1); LYMPHOCYTES ABSOLUTE AUTO 1.71 K/mm3 (0.84-5.20); LYMPHOCYTES PERCENT AUTO 11 % (21-46); MONOCYTES ABSOLUTE AUTO 1.34 K/mm3 (0.16-1.47); MONOCYTES PERCENT AUTO 9 % (4-13); Mean Corpuscular HGB 26.7 pg (26.0-34.0); Mean Corpuscular HGB Conc 30.5 g/dL (31.5-36.5); Mean Corpuscular Volume 87 fL (80-100); Mean Platelet Volume 9.7 fL (9.1-12.4); NEUTROPHILS ABSOLUTE AUTO 11.85 K/mm3 (1.96-9.15); NEUTROPHILS PERCENT AUTO 79 % (41-73); Platelet Count 405 K/mm3 (150-400); RDW Coefficient Variation 14.2 % (11.7-14.2); RDW Standard Deviation 45.1 fL (35.1-46.3); Red Blood Cell Count 5.89 M/mm3 (3.80-5.20); White Blood Cell Count 15.08 K/mm3 (4.00-11.30)
[2019-07-24 20:51] LABS: Alanine Aminotransfer (ALT/SGP 19 U/L (12-78); Albumin, Blood 3.1 g/dL (3.4-5.0); Albumin/Globulin Ratio 0.7 (0.8-1.8); Alk Phos 105 U/L (50-136); Anion Gap 7 mmol/L (6-16); Aspartate Aminotrans (AST/SGOT 11 U/L (12-37); Bilirubin, Total 0.5 mg/dL (0.1-1.0); Blood Urea Nitrogen 14 mg/dL (8-24); CO2, Blood 24 mmol/L (21-32); Calcium, Blood 8.3 mg/dL (8.5-10.1); Chloride, Blood 102 mmol/L (98-108); Creatinine, Blood 0.56 mg/dL (0.40-1.00); Globulin, Blood 4.5 g/dL (2.2-4.0); Glomerular Filtration Rate >60 (60-); Glucose, Blood 129 mg/dL (70-99); Potassium, Blood 4.5 mmol/L (3.5-5.5); Sodium, Blood 133 mmol/L (136-145); Total Protein, Blood 7.6 g/dL (6.4-8.2); Troponin I 0.022 ng/mL (0.000-0.040)
[2019-07-24] MEDS ORDERED: DULO60 PO (21:22)
[2019-07-24] MEDS ORDERED: ALEN70 PO (21:23)
[2019-07-24] MEDS ORDERED: ASCO500 PO (21:24)
[2019-07-24] MEDS ORDERED: CITRACAL + D E1 EACH PO (21:25)
[2019-07-24] MEDS ORDERED: MANNXTRA300 GM PO (21:26)
[2019-07-24] MEDS ORDERED: EUTHYROX125 MCG PO (21:26)
[2019-07-25] MEDS ORDERED: OMEP20ER PO (00:44)
[2019-07-25 04:31] LABS: BASOPHILS ABSOLUTE AUTO 0.05 K/mm3 (0.00-0.23); BASOPHILS PERCENT AUTO 0 % (0-2); EOSINOPHILS ABSOLUTE AUTO 0.12 K/mm3 (0.00-0.68); EOSINOPHILS PERCENT AUTO 1 % (0-6); Hematocrit 36.6 % (33.0-51.0); Hemoglobin 11.6 g/dL (11.5-16.0); IMMATURE GRAN ABSOLUTE AUTO 0.05 K/mm3 (0.00-0.10); IMMATURE GRAN PERCENT AUTO 0 % (0-1); LYMPHOCYTES ABSOLUTE AUTO 2.06 K/mm3 (0.84-5.20); LYMPHOCYTES PERCENT AUTO 15 % (21-46); MONOCYTES ABSOLUTE AUTO 1.76 K/mm3 (0.16-1.47); MONOCYTES PERCENT AUTO 13 % (4-13); Mean Corpuscular HGB 26.9 pg (26.0-34.0); Mean Corpuscular HGB Conc 31.7 g/dL (31.5-36.5); Mean Corpuscular Volume 85 fL (80-100); Mean Platelet Volume 9.2 fL (9.1-12.4); NEUTROPHILS ABSOLUTE AUTO 9.41 K/mm3 (1.96-9.15); NEUTROPHILS PERCENT AUTO 70 % (41-73); Platelet Count 338 K/mm3 (150-400); RDW Standard Deviation 43.6 fL (35.1-46.3); Red Blood Cell Count 4.32 M/mm3 (3.80-5.20); White Blood Cell Count 13.45 K/mm3 (4.00-11.30)
[2019-07-25 04:55] LABS: Anion Gap 5 mmol/L (6-16); Blood Urea Nitrogen 17 mg/dL (8-24); Bun/Creatinine Ratio 26.3 (12.0-20.0); CO2, Blood 26 mmol/L (21-32); Calcium, Blood 7.5 mg/dL (8.5-10.1); Chloride, Blood 103 mmol/L (98-108); Creatinine, Blood 0.65 mg/dL (0.40-1.00); Glomerular Filtration Rate >60 (60-); Glucose, Blood 116 mg/dL (70-99); Potassium, Blood 4.3 mmol/L (3.5-5.5); Sodium, Blood 134 mmol/L (136-145); Troponin I <0.015 ng/mL (0.000-0.040)
--- NOTE | 2019-07-25 07:30 | NUR ---
ASSUMED PATIENT CARE. PATIENT SLEEPING COMFORTABLY IN BED, NO SIGNS OF ACUTE DISTRESS. WCTM.
--- NOTE | 2019-07-25 07:37 | NUR ---
ADMIT NOTE/SHIFT SUMMARY: PATIENT ADMITED EARLIER THIS SHIFT FROM THE ER AND WAS TRANSFERED FROM THE GURNEY TO THE BED VIA SLIDER SHEET. PATIENT PLEASENT AND COOPERATIVE. PATIENT DENIED ANY CHEST PAIN UPON ADMIT BUT DID HAVE NECK PAIN. PATIENT MEDICATED FOR PAIN PER EMAR. PATIENT TURNED FREQUENTLY THROUGHOUT THE NIGHT. NO CHEST PAIN NOTED THROUGHOUT THE NIGHT. PATIENT APPEARED TO SLEEP WELL LAST NIGHT AFTER ADMIT WAS COMPLETE. REPORT GIVEN TO ONCOMING RN.
--- NOTE | 2019-07-25 19:21 | NUR ---
RELINQUISHED PATIENT CARE.
--- NOTE | 2019-07-25 19:29 | NUR ---
NO ACUTE EVENTS THIS SHIFT. PATIENT'S TROPONIN LEVEL CAME BACK INSIGNIFICANT FOR TWO DRAWS THIS SHIFT, PATIENT DENIED CHEST PAIN/PRESSURE THIS SHIFT. RLE CELLULITIS BORDER REMARKED THIS SHIFT. PATIENT WENT FOR CT AT END OF SHIFT DUE TO ADRENAL MASS NOTED ON PREVIOUS SCAN. PLEURAL EFFUSIONS NOTED, PLAN IS TO DIURESE WITH IV LASIX AND TREAT CELLULITIS WITH IV ABX.
[2019-07-25 21:36] LABS: Vancomycin, Trough 11.5 ug/mL (5.0-10.0)
[2019-07-25] MEDS ORDERED: TRAZ50 PO (21:52)
[2019-07-26 04:12] LABS: BASOPHILS ABSOLUTE AUTO 0.05 K/mm3 (0.00-0.23); BASOPHILS PERCENT AUTO 1 % (0-2); EOSINOPHILS ABSOLUTE AUTO 0.54 K/mm3 (0.00-0.68); EOSINOPHILS PERCENT AUTO 6 % (0-6); Hematocrit 34.6 % (33.0-51.0); Hemoglobin 11.1 g/dL (11.5-16.0); IMMATURE GRAN ABSOLUTE AUTO 0.03 K/mm3 (0.00-0.10); IMMATURE GRAN PERCENT AUTO 0 % (0-1); LYMPHOCYTES ABSOLUTE AUTO 1.68 K/mm3 (0.84-5.20); LYMPHOCYTES PERCENT AUTO 18 % (21-46); MONOCYTES ABSOLUTE AUTO 1.01 K/mm3 (0.16-1.47); MONOCYTES PERCENT AUTO 11 % (4-13); Mean Corpuscular HGB 27.1 pg (26.0-34.0); Mean Corpuscular HGB Conc 32.1 g/dL (31.5-36.5); Mean Corpuscular Volume 84 fL (80-100); Mean Platelet Volume 9.6 fL (9.1-12.4); NEUTROPHILS ABSOLUTE AUTO 5.96 K/mm3 (1.96-9.15); NEUTROPHILS PERCENT AUTO 64 % (41-73); Platelet Count 301 K/mm3 (150-400); RDW Standard Deviation 43.3 fL (35.1-46.3); White Blood Cell Count 9.27 K/mm3 (4.00-11.30)
[2019-07-26 04:28] LABS: Anion Gap 5 mmol/L (6-16); Blood Urea Nitrogen 16 mg/dL (8-24); CO2, Blood 28 mmol/L (21-32); Calcium, Blood 7.9 mg/dL (8.5-10.1); Chloride, Blood 102 mmol/L (98-108); Creatinine, Blood 0.67 mg/dL (0.40-1.00); Glomerular Filtration Rate >60 (60-); Glucose, Blood 93 mg/dL (70-99); Sodium, Blood 135 mmol/L (136-145)
--- NOTE | 2019-07-26 06:00 | NUR ---
SHIFT SUMMARY.REVIEWS HELP NEEDS TO CHANGE INCONTINENT ATTENDS AND IN TURNING. REVIEWS WHAT SHE WOULD DO AT HOME SINCE SHE IS SELF CARE AND NO HELP AT HOME. ENC TURN COUGH AND DEEP BREATHE. AND GOOD EFFORT . VERY WEAK AND REPORTS BOTH HANDS ARE MOSTLY NUMB AND AKWARD FINE MOTOR MOVENMENT SEEMS EVIDENT.DENIES CP AND ANY PAIN AT RT LEG SITE . ELEVATED ON PILLOWS. CT OF ABD DOMNE AT 1999 LAST NOC. TOLERATED WELL. HS SNACK AND FLUIDS ENC. TAKEN WELL. SR.
--- NOTE | 2019-07-26 12:29 | NUR ---
TRANSFER REPORT GIVEN TO TOMA NATH ON MEDICAL FLOOR. PT TRANSFERRED VIA BED TO ROOM 339. BELONGINGS WITH PT.
--- NOTE | 2019-07-26 12:30 | NUR ---
Assumed care Patient arrived and was settled in by relief RN Ro. Received report from TOMA Medley. Call light near, bed in lowest position, will monitor.
--- NOTE | 2019-07-26 17:44 | NUR ---
Shift Summary A/O, patient transferred from [facility] to [place] [address] around noon. Denies chest pain, nausea, vomiting. Tele: SR 83, 95% on RA, incontinent, 2 max assist with slide board for transfers, 1 P for brief changes in bed. Follow directions well, calls and answers questions appropriately. Resting in bed and having dinner at this time. Will continue to monitor.
[2019-07-26 21:17] LABS: Vancomycin, Trough 17.6 ug/mL (5.0-10.0)
--- NOTE | 2019-07-27 01:13 | NUR ---
PAIN IN L ARM PT WOKE UP W/SHARP "SQUEEZING" PAIN IN L ARM STARTING BELOW DELTOID & RAIDIATING TO PALM. RATES PAIN A 5/10. IS MOANING & GRIMACING. GAVE TYLENOL BECAUSE PT STATES SHE ALSO HAS HEADACHE ASSOCIATED W/L ARM PAIN. STATES THIS PAIN OCCURS OCCASIONALLY T/O THE WEEK, NOT EVERY NIGHT BUT SOMETIMES MULTIPLE TIMES A NIGHT & IT WILL WAKE HER UP OUT OF SLEEP. PAIN LASTED ROUGHLY 5MIN & THEN PT FELT BETTER & HEADACHE WAS GONE ALONG WITH L ARM PAIN. STATES SHE HAS BEEN TAKING GABAPENTIN @HOME FOR THE PAIN. ALSO REPORTS DR IS AWARE OF ARM PAIN. CALL LIGHT IN REACH. WILL CONTINUE TO MONITOR.
[2019-07-27 04:51] LABS: BASOPHILS ABSOLUTE AUTO 0.04 K/mm3 (0.00-0.23); BASOPHILS PERCENT AUTO 0 % (0-2); EOSINOPHILS PERCENT AUTO 4 % (0-6); Hematocrit 37.3 % (33.0-51.0); IMMATURE GRAN ABSOLUTE AUTO 0.03 K/mm3 (0.00-0.10); IMMATURE GRAN PERCENT AUTO 0 % (0-1); LYMPHOCYTES ABSOLUTE AUTO 1.47 K/mm3 (0.84-5.20); LYMPHOCYTES PERCENT AUTO 13 % (21-46); MONOCYTES ABSOLUTE AUTO 1.08 K/mm3 (0.16-1.47); MONOCYTES PERCENT AUTO 10 % (4-13); Mean Corpuscular HGB 26.7 pg (26.0-34.0); Mean Corpuscular HGB Conc 32.2 g/dL (31.5-36.5); Mean Corpuscular Volume 83 fL (80-100); Mean Platelet Volume 9.5 fL (9.1-12.4); NEUTROPHILS ABSOLUTE AUTO 8.19 K/mm3 (1.96-9.15); NEUTROPHILS PERCENT AUTO 72 % (41-73); Platelet Count 319 K/mm3 (150-400); RDW Coefficient Variation 13.8 % (11.7-14.2); RDW Standard Deviation 41.9 fL (35.1-46.3); White Blood Cell Count 11.31 K/mm3 (4.00-11.30)
[2019-07-27 05:08] LABS: Anion Gap 5 mmol/L (6-16); Blood Urea Nitrogen 19 mg/dL (8-24); CO2, Blood 27 mmol/L (21-32); Calcium, Blood 8.2 mg/dL (8.5-10.1); Chloride, Blood 104 mmol/L (98-108); Creatinine, Blood 0.66 mg/dL (0.40-1.00); Glomerular Filtration Rate >60 (60-); Glucose, Blood 120 mg/dL (70-99); Potassium, Blood 3.8 mmol/L (3.5-5.5); Sodium, Blood 136 mmol/L (136-145)
--- NOTE | 2019-07-27 05:29 | NUR ---
SHIFT SUMMARY AOX4. VSS. TELE NSR HR 84. DENIES NAUSEA, DYSPNEA OR CHEST PAIN. DID REPORT L ARM PAIN LAST NIGHT, READ PREVIOUS NOTE. INCONTINENT OF URINE, ATTENDS CHANGED PRN. RLE SLIGHTLY RED W/+1 EDEMA. BANDAGE ON BUTTOCKS CHANGED THIS AM, NO OPEN SKIN NOTED. CALL LIGHT IN REACH & PT MAKES NEEDS KNOWN. WCTM.
--- NOTE | 2019-07-27 15:18 | NUR ---
Initial spiritual care note: Mrs. Lawrence tells me she has accepted her multiple illnesses as a fact of her life. She denies concerns and tels me she feel well-loved and supported by family. She is looking forward to going home today. she is also satisfied with her full-code status. She was pleasant and appeared to enjoy encouragement/affirmation. I will remain available.
[2019-07-27] MEDS ORDERED: VISBIOME 112.51 EACH PO (15:20)
[2019-07-27] MEDS ORDERED: DOXY100 PO (15:21)
--- NOTE | 2019-07-27 15:36 | NUR ---
DISCHARGE INSTRUCTIONS REVIEWED WITH PATIENT WELL EDUCATIONAL MATERIAL PROVIDED. ALL QUESTIONS ANSWERED. TELE REMOVED AND RETURNED TO PCU. PATIENT FINISHING UP IV ABX AND WILL BE DISCHARGE HOME VIA W/C VAN.
== END 2019-07-27 16:16 | disposition home or self-care (01) | DRG 872 ==
LOC: ER 17:49 → PCU 17:50 → ER 17:50 → PCU 17:50 → MEDS 07-25 00:09 → PCU 07-25 00:19 → MEDS 07-26 12:33
PROVIDERS: Emergency Medicine; Family Medicine; Nurse Practitioner Acute Care; Student in an Organized Health Care Education/Training Program; ADMIT Family Medicine
PROC: 8E0ZXY6 Isolation (ICD-10-PCS; principal; 2019-07-24)
DX: A41.9 Sepsis, unspecified organism (principal); L03.115 Cellulitis of right lower limb; I50.30 Unspecified diastolic (congestive) heart failure; G35 Multiple sclerosis; Z89.512 Acquired absence of left leg below knee; G25.81 Restless legs syndrome; K21.9 Gastro-esophageal reflux disease without esophagitis; Z87.891 Personal history of nicotine dependence; Z99.3 Dependence on wheelchair; E27.8 Other specified disorders of adrenal gland; E03.9 Hypothyroidism, unspecified; I11.0 Hypertensive heart disease with heart failure
CPT/HCPCS: 36415; 71045; 71260; 74170; 80048; 80053; 80202; 83605; 83735; 83880; 84145; 84484; 85025; 87040; 93005; 93010; 93306; 96365-59; 96366; 96372; 96375-59; 96376; 97162; 97530; 99285-25; A9270; A9270-GY; G0378; J0692; J1170; J1650; J1940; J2405; J3370; J7030; J7050; Q9967

== ENCOUNTER 2019-08-31 00:45 | Day surgery (SDC) | payer MEDICARE, OTHER ==
[~2019-08-31 00:45] MED LIST changes: +ALEN70 PO; +CITRACAL + D E1 EACH PO; +DOXY100 PO; +DULO60 PO; +EUTHYROX125 MCG PO; +MANNXTRA300 GM PO; +OMEP20ER PO; +TRAZ50 PO; +VISBIOME 112.51 EACH PO
== END 2019-08-31 23:12 | disposition home or self-care (01) ==
LOC: WOUND 00:45
DX: L89.892 Pressure ulcer of other site, stage 2 (principal); S51.812A Laceration without foreign body of left forearm, initial encounter; X58.XXXA Exposure to other specified factors, initial encounter; Z89.512 Acquired absence of left leg below knee; E03.9 Hypothyroidism, unspecified; I10 Essential (primary) hypertension; F32.9 Major depressive disorder, single episode, unspecified; Z88.1 Allergy status to other antibiotic agents
CPT/HCPCS: G0463

== ENCOUNTER 2019-09-07 00:12 | Day surgery (SDC) | payer MEDICARE, OTHER | END 2019-09-07 22:56 | disposition home or self-care (01) | LOC: WOUND 00:12 | DX: L89.892 Pressure ulcer of other site, stage 2 (principal); S51.812D Laceration without foreign body of left forearm, subsequent encounter; I10 Essential (primary) hypertension; E03.9 Hypothyroidism, unspecified; G35 Multiple sclerosis; F32.9 Major depressive disorder, single episode, unspecified; Z79.899 Other long term (current) drug therapy | CPT/HCPCS: G0463 ==